=== PATIENT | female | born 1945 | race Caucasian/White ===

== ENCOUNTER 2016-04-16 18:20 | Observation (INO) | payer OTHER ==
[~2016-04-16] VITALS: Ht 152.4 cm; Wt 68.4 kg
--- NOTE | 2016-04-16 18:54 | DIAGNOSTIC IMAGING REPORT ---
PROCEDURE: CT HEAD WITHOUT CONTRAST INDICATION: Right-sided visual changes, altered speech and disoriented. Initial encounter. TECHNIQUE: Noncontrast axial images with sagittal and coronal reformations. COMPARISON: Brain MRI 11/15/2008 FINDINGS: Mild cortical atrophy. Ventricular system and brain parenchyma are normal. No evidence of acute intracranial process. Visualized mastoids and sinuses are clear. IMPRESSION: 1. No acute intracranial abnormality 2. Mild cortical atrophy 3. Findings discussed with Dr. Vizcaino at 06:51 p.m., [facility] Time
--- NOTE | 2016-04-16 18:54 | DIAGNOSTIC IMAGING REPORT ---
PROCEDURE: CT HEAD WITHOUT CONTRAST INDICATION: Right-sided visual changes, altered speech and disoriented. Initial encounter. TECHNIQUE: Noncontrast axial images with sagittal and coronal reformations. COMPARISON: Brain MRI 11/15/2008 FINDINGS: Mild cortical atrophy. Ventricular system and brain parenchyma are normal. No evidence of acute intracranial process. Visualized mastoids and sinuses are clear. IMPRESSION: 1. No acute intracranial abnormality 2. Mild cortical atrophy 3. Findings discussed with Dr. Vizcaino at 06:51 p.m., [facility] Time
--- NOTE | 2016-04-16 20:13 | ED NURSING NOTES ---
Clinical Report - Nurses [facility] [address] [place] [address] 04/16/2016 18:22 Patient: PALAK HANSEN TRIAGE Triage time 18:29. Acuity: LEVEL 2. Chief Complaint: HEADACHE and CONFUSION (Code stroke called. "I couldn't get the right words out". Dr Vizcaino at the bedside.). Alert. No acute distress. SEPSIS SCREEN: Sepsis Screen: negative. Negative (no infection suspected/documented). SUDHEER COMA SCORE: Sudheer Coma Scale: 14- eyes open spontaneously (4); best verbal response- disoriented (4); best motor response- obeys commands (6). --18:43 Lashanda Chester R.N. 18:34 04/16/16. BP: 124/72. HR: 77. RR: 22. O2 saturation: 100% on room air. Temp: 98.1 F. Pain level now: cannot qualify. --18:43 Lashanda Chester R.N. Weight: 63.5 kg estimated. Height/Length: 62 inches Estimated. BMI: 25.6. --18:38 Lashanda Chester R.N. Medications Pravastatin Sodium Oral 40 mg, at bedtime. --18:34 Lashanda Chester R.N. Nexium 20mg am. --18:35 Lashanda Chester R.N. Flaxseed (Linseed) Oral. [place] 3 Oral. --18:35 Lashanda Chester R.N. Vits. --18:35 Lashanda Chester R.N. LORazepam Oral, PRN. --18:38 Lashanda Chester R.N. Medication/allergy information source: the patient. --18:43 Lashanda Chester R.N. Allergies No Known Drug Allergy. --18:36 Lashanda Chester R.N. History Arrived by private vehicle. Historian: patient. Accompanied by family. Primary physician (beverly). This started just prior to arrival. She has had weakness. ( Problems with forming and saying words). 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 PAST MEDICAL HX: Immunizations: up-to-date. The patient is post-menopausal. ( cholesterol problems, reflux, anxiety). SOCIAL HX: Heavy tobacco smoker (cigarette)- less than 1 pack per day. Alcohol use; consumes three liquor drinks. No drug use. FALL RISK ASSESSMENT: Fall risk assessment completed. No fall risk identified. NUTRITIONAL RISK ASSESSMENT: The nutritional risk assessment revealed no deficiencies. FUNCTIONAL ASSESSMENT: Functional assessment: no impairments noted. --18:43 Lashanda Chester R.N. PROBLEMS: Vertigo. --18:44 Lashanda Chester R.N. Interventions ID band on patient. To room. --18:43 Lashanda Chester R.N. PHYSICAL ASSESSMENT To room via wheelchair. Patient gowned. GENERAL / NEURO / PSYCH: Appears anxious. HEENT: No facial asymmetry noted. Mucous membranes are pink. RESPIRATORY: Respirations not labored. CVS: Capillary refill less than 2 seconds. GI / : Abdomen nontender. SKIN: Skin intact. Skin is warm and dry. Normal skin turgor. --18:44 Lashanda Chester R.N. NURSING PROGRESS NOTES radiation monitor, pulse oximeter and NIBP monitor placed on patient; monitor tech- Lead II; monitor alarms on. Patient gowned. Head of bed elevated. Two patient identifiers checked. Call light placed in reach. Side rails up x 2. Bed placed in lowest position. Brakes of bed on. Patient ready for evaluation. --18:44 Lashanda Chester R.N. Patient returned from CT by stretcher with tech. (18:45). --18:45 Lashanda Chester R.N. 18:30 04/16/2016 Site #1 started via IV in the right antecubital space with an 20g angiocath, with aseptic technique and good blood return; one attempt. Blood drawn: rainbow set. Labeled in the presence of the patient and sent to the lab. Saline lock flushed with 10 mL saline. --18:45 Lashanda Chester R.N. 18:46 04/16/16. BP: 113/65 taken on the left arm, while lying. HR: 81. RR: 17. O2 saturation: 97% on room air. --18:47 Lashanda Chester R.N. EKG time: (184). EKG was performed by a tech and shown to the ED physician. --18:54 Haritha Land Finger stick glucose: 74 mg/dL; performed by nurse. --19:07 Lashanda Chester R.N. ( Patient ambulated to and from the bathroom, with only standby assistance. Gait steady, patient follows directions.). --19:09 Lashanda hCester R.N. 19:10 04/16/2016 Started bag #1 1000 mL IV Fluids IV NS (Saline); at 1000 mL/hr over 1 hour(s) via site #1 via IV pump. Allergies verified and confirmed 5 rights. IV patency established. IV site checked: no pain, redness, or swelling. IV flushed thoroughly pre- and post-medication administration. --19:17 Lashanda Chester R.N. 19:58 04/16/2016 Aspirin PO Tablets 325 mg given. Allergies verified and confirmed 5 rights. (Given by Lashanda Mccullough). --19:58 Koki Katz R.N. DISPOSITION / DISCHARGE Transported via stretcher by [employer]. Report was given to a nurse. Report included patient's care, treatment, medications, reviewed medication reconcilliation, and condition (including any recent changes or anticipated changes). All questions were answered. Report was acknowledged and care was transferred. (KATALINA Correa). Patient's personal items include: shirt, pants, socks, shoes and cell phone; items were placed in belongings bag and transported with the patient. Collection of belongings was witnessed by 1 nurse. --21:17 Lashanda Chester R.N. 20:40 04/16/16. BP: 128/88. HR: 69. RR: 16. O2 saturation: 100% on room air. Pain level now: 0. 19:30 04/16/16. BP: 122. HR: 74. RR: 16. O2 saturation: 100%. Pain level now: 05/22. 18:46 04/16/16. BP: 113/65 taken on the left arm, while lying. HR: 81. RR: 17. O2 saturation: 97% on room air. 18:34 04/16/16. BP: 124/72. HR: 77. RR: 22. O2 saturation: 100% on room air. Temp: 98.1 F. Pain level now: cannot qualify. --21:17 Lashanda Chester R.N. Locked/Released at 04/16/2016 21:34 by Lashanda Chester R.N.
--- NOTE | 2016-04-16 20:13 | ED ORDER SUMMARY ---
..... Patient: PALAK HANSEN OrderSheet [facility] VisitID: [id number] [place] [address] 71y, F Registration Date/Time: 04/16/2016 ORDER SHEET Weight: 63.5 kg (estimated) Allergies: No Known Drug Allergy GENERAL ORDERS: CT Head wo Cont Urgent (18:32 04/16/2016 SRoberts R.N. verbal order read back to Dillon LIMA) (Ack 18:35 LTapper) (18:56 SRoberts R.N.) (18:57 MCampbell) Cardiac Panel Stat (18:50 04/16/2016 Dillon LIMA) (Ack 18:58 LTapper) (18:58 LTapper) PT with INR Urgent (18:50 04/16/2016 Dillon LIMA) (Ack 18:58 LTapper) (18:58 LTapper) UA-Culture if indicated Urgent (18:50 04/16/2016 Dillon LIMA) (Ack 18:58 LTapper) (18:58 LTapper) MEDICATION ORDERS: Aspirin PO 325 mg (Do not crush or chew, NOW) (19:47 04/16/2016 Dillon LIMA) (Ack 19:57 ABarnum R.N.) (19:58 ABarnum R.N.) IV FLUIDS: IV NS : initial bolus 1000 mL (1000 mL/hr), then none - (NOW) (18:50 04/16/2016 Dillon LIMA) (Ack 19:09 ABarnum R.N.) (19:17 SRoberts R.N.) ORDER SHEET NOTES: [Electronically signed by Lashanda Chester R.N. (21:34 04/16/2016)] [Electronically signed by Qi Vizcaino MD (21:43 04/20/2016)] [Electronically locked/signed by Lashanda Chester R.N. (21:34 04/16/2016)]
--- NOTE | 2016-04-16 20:13 | ED CLINICAL REPORT ---
Clinical Report - Physicians/Mid Levels [facility] [address] [place] [address] 04/16/2016 18:22 Patient: PALAK HANSEN Time Seen: 1828. Arrived- By private vehicle. Historian- patient. HISTORY OF PRESENT ILLNESS Chief Complaint: IMPAIRED SPEECH. This started about 1 hour ago and is still present but is improving. No weakness, numbness, tingling, visual disturbance or impaired swallowing. No recent fall. She has had difficulty with speech (pt was unable to get the right words out, per and pt). No difficulty walking. At its maximum deficit described as moderate. When seen in the E.D., deficit described as mild. No dizziness, altered mental status, seizure or blackouts. Usually is alert and oriented X3 and has normal mobility. Similar symptoms previously: None. Recent medical care: Not recently seen/assessed. REVIEW OF SYSTEMS No fever, headache, head injury, chest pain or difficulty breathing. No cough, sputum production, sore throat, abdominal pain or nausea. No diarrhea, black stools, difficulty with urination, skin rash or enlarged lymph nodes. No joint pain, vomiting, bloody stools or back pain. All systems otherwise negative, except as recorded above. PAST HISTORY Problems: Anxiety Reaction. Hypercholesterolemia. Vertigo. Additional Surgeries: no known surgeries. Medications: LORazepam Oral, PRN. Vits. Flaxseed (Linseed) Oral. [place] 3 Oral. Nexium 20mg am. Pravastatin Sodium Oral 40 mg, at bedtime. Allergies: No Known Drug Allergy. SOCIAL HISTORY Smoker- current status unknown. Alcohol use. No drug use. ADDITIONAL NOTES The nursing notes have been reviewed. PHYSICAL EXAM Vital Signs: 04/16/2016 18:34 BP: 124/72. HR: 77. RR: 22. O2 saturation: 100%. Temp: 98.1 F. Have been reviewed. Appearance: Alert. No acute distress. Head: Head atraumatic. Eyes: Pupils equal, round and reactive to light. ENT: Normal ENT inspection. Airway intact. Neck: Normal inspection. CVS: Normal heart rate and rhythm. Heart sounds normal. Pulses normal. Respiratory: No respiratory distress. Breath sounds normal. Abdomen: Soft and nontender. Back: Normal inspection. No CVA tenderness. Skin: Skin warm and dry. Normal skin color. No rash. Normal skin turgor. Extremities: Extremities exhibit normal ROM. No lower extremity edema. Neuro: Alert. Oriented X 3. Expressive aphasia (Very mild; pt occasionally says the wrong word or stumbles in her speech. Pt's speech does not flow smoothly.). Mood/affect normal. Cranial nerves normal (as tested). No cerebellar findings. No motor deficit. No sensory deficit. LABS, X-RAYS, AND EKG EKG: EKG time: (1848). Rhythm Strip #1: Time: (0). Rate= 74. Normal sinus rhythm. Regular rhythm. Narrow QRS complexes. No ectopy. Conduction normal. Normal ST segments and T waves. The study was interpreted by me. CT Head: Normal study. No acute changes. No bony abnormalities, no hemorrhage, no intracranial mass, no midline shift and no hydrocephalus. No atrophy. Head CT performed without contrast. The study was independently viewed by me, interpreted by the radiologist and contemporaneously by me and discussed with the radiologist. Prior studies were not available for comparison. Laboratory Tests: UA-Culture if indicated: (CLAUDIO: 04/16/2016 19:05) ( MsgRcvd 04/16/2016 19:25) Final results Test Result Flag Units (Reference) URINE COLOR YELLOW URINE APPEARANCE CLEAR URINE GLUCOSE NEGATIVE (NEGATIVE) URINE BILIRUBIN NEGATIVE (NEGATIVE) URINE KETONE NEGATIVE (NEGATIVE) URINE SPECIFIC GRAVITY <= 1.005 L (1.010-1.030) URINE PH 6.0 (5.0-8.0) URINE PROTEIN NEGATIVE (NEGATIVE) URINE UROBILINOGEN 0.2 EU/dL (0.2-1.0) URINE NITRITE NEGATIVE (NEGATIVE) URINE BLOOD NEGATIVE (NEGATIVE) URINE LEUK ESTERASE NEGATIVE (NEGATIVE) URINE RBC 0-1 rbc/hpf (0-1) URINE WBC 0-1 wbc/hpf (0-1) URINE EPITHELIAL CELLS 1-3 EPI/hpf (0-5) URINE BACTERIA NONE SEEN (NONE SEEN) URINE COMMENT CULT NOT INDICATED URINE CULTURES ARE SET-UP BASED ON THE FOLLOWING CRITERIA:POSITIVE NITRITEPOSITIVE LEUKOCYTE ESTERASEGREATER THAN 10 WHITE BLOOD CELLSMODERATE (2+) OR GREATER BACTERIA CBC w Diff: (CLAUDIO: 04/16/2016 18:30) ( [facility] 04/16/2016 18:58) Final results Test Result Flag Units (Reference) WHITE BLOOD COUNT 5.8 K/uL (4.5-11.5) RED BLOOD COUNT 3.78 L M/uL (4.00-5.20) HEMOGLOBIN 11.7 L gm/dL (12.0-16.0) HEMATOCRIT 35.2 L % (36.0-46.0) MEAN CELL VOLUME 93 fL (80-100) MEAN CORPUSCULAR HGB 31 pg (26-34) MEAN CORPUSCULAR HGB CONC 33 g/dL (31-37) RED CELL DISTRIBUTION WIDTH 13.7 % (11.6-14.8) PLATELET COUNT 140 L K/uL (150-400) NEUTROPHIL % 31.5 L % (50-75) LYMPH % 52.8 H % (25-40) MONO % 15.0 H % (3-14) EOSINOPHIL % 0.3 % (0-4) BASOPHIL % 0.4 % (0-2) PT with INR: (CLAUDIO: 04/16/2016 18:30) ( [facility] 04/16/2016 19:07) Final results Test Result Flag Units (Reference) INR 1.0 (0.8-1.2) Low Intensity Therapy: INR 1.5-2.0 PT range 18.5-23.1Mod.Intensity Therapy: INR 2.0-3.0 PT range 23.1-31.5High Intensity Therapy: INR 2.5-3.5 PT range 27.4-35.5High Intensity Therapy 2: INR 3.0-4.0 PT range 31.5-39.3 CHEM 13 PANEL: (CLAUDIO: 04/16/2016 18:30) ( [facility] 04/16/2016 19:18) Final results Test Result Flag Units (Reference) GLUCOSE 74 mg/dL (70-110) BUN 17 mg/dL (7-18) CREATININE 0.6 mg/dL (0.6-1.3) Estimated GFR >60 mL/min Estimated GFR- >60 mL/min Note: Persistent reduction over 3 months in eGFR<60 mL/min/1.73 m2 defines CKD. Patients with eGFR values>=60 mL/min/1.73 m2 may also have CKD if evidence ofpersistent proteinuria. Additional information may be foundat www.kidney.org. SODIUM 141 mmol/L (136-145) POTASSIUM 3.4 L mmol/L (3.5-5.1) CHLORIDE 107 mmol/L (98-107) CARBON DIOXIDE 23 mmol/L (21-32) CALCIUM 8.6 mg/dL (8.5-10.1) TOTAL PROTEIN 8.9 H g/dL (6.4-8.2) ALBUMIN 3.4 g/dL (3.3-5.0) BILIRUBIN, TOTAL 0.2 mg/dL (0.0-1.0) ALKALINE PHOSPHATASE 75 U/L (46-116) AST (SGOT) 31 U/L (15-37) ALT (SGPT) 34 U/L (12-78) MAGNESIUM 1.9 mg/dL (1.8-2.4) CPK 75 U/L (24-260) TROPONIN I <0.05 L ng/mL (0.00-1.5) TROPONIN REFERENCE RANGE:<0.1 NEGATIVE0.1-1.5 INDETERMINANT>1.5 POSITIVE . Pulse Oximetry: 04/16/2016 18:34 O2 saturation: 100%. (FIO2 - room air). Interpretation: normal. PROGRESS AND PROCEDURES Course of Care: Pt was evaluated as a "code Stroke", and after my initial evaluation, was immediately sent for a stat CT head. This did not show evidence of hemorrhage. Pt was given an ASA and a liter of NS. Pt had improved a little since symptom onset, and I did not feel she was a candidate for tPA at this time. Pt's work-up in the ED was negative. I did feel that the pt should be admitted to the hospital for observation and further work-up. Discussed case with hospitalist, (Nikkie). Reviewed test results and need for additional work-up. Agreed upon treatment plan and decision to admit. Health care provider will see patient in hospital. Old medical records reviewed. Disposition: Admitted to Acute Care. Condition: stable and serious. CLINICAL IMPRESSION Acute transient ischemic attack. (Electronically signed by Qi Vizcaino MD 04/20/2016 21:43)
--- NOTE | 2016-04-16 20:13 | ED NURSING NOTES ---
Clinical Report - Nurses [facility] [address] [place] [address] 04/16/2016 18:22 Patient: PALAK HANSEN TRIAGE Triage time 18:29. Acuity: LEVEL 2. Chief Complaint: HEADACHE and CONFUSION (Code stroke called. "I couldn't get the right words out". Dr Vizcaino at the bedside.). Alert. No acute distress. SEPSIS SCREEN: Sepsis Screen: negative. Negative (no infection suspected/documented). SUDHEER COMA SCORE: Sudheer Coma Scale: 14- eyes open spontaneously (4); best verbal response- disoriented (4); best motor response- obeys commands (6). --18:43 Lashanda Chester R.N. 18:34 04/16/16. BP: 124/72. HR: 77. RR: 22. O2 saturation: 100% on room air. Temp: 98.1 F. Pain level now: cannot qualify. --18:43 Lashanda Chester R.N. Weight: 63.5 kg estimated. Height/Length: 62 inches Estimated. BMI: 25.6. --18:38 Lashanda Chester R.N. Medications Pravastatin Sodium Oral 40 mg, at bedtime. --18:34 Lashanda Chester R.N. Nexium 20mg am. --18:35 Lashanda Chester R.N. Flaxseed (Linseed) Oral. [place] 3 Oral. --18:35 Lashanda Chester R.N. Vits. --18:35 Lashanda Chester R.N. LORazepam Oral, PRN. --18:38 Lashanda Chester R.N. Medication/allergy information source: the patient. --18:43 Lashanda Chester R.N. Allergies No Known Drug Allergy. --18:36 Lashanda Chester R.N. History Arrived by private vehicle. Historian: patient. Accompanied by family. Primary physician (beverly). This started just prior to arrival. She has had weakness. ( Problems with forming and saying words). 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 PAST MEDICAL HX: Immunizations: up-to-date. The patient is post-menopausal. ( cholesterol problems, reflux, anxiety). SOCIAL HX: Heavy tobacco smoker (cigarette)- less than 1 pack per day. Alcohol use; consumes three liquor drinks. No drug use. FALL RISK ASSESSMENT: Fall risk assessment completed. No fall risk identified. NUTRITIONAL RISK ASSESSMENT: The nutritional risk assessment revealed no deficiencies. FUNCTIONAL ASSESSMENT: Functional assessment: no impairments noted. --18:43 Lashanda Chester R.N. PROBLEMS: Vertigo. --18:44 Lashanda Chester R.N. Interventions ID band on patient. To room. --18:43 Lashanda Chester R.N. PHYSICAL ASSESSMENT To room via wheelchair. Patient gowned. GENERAL / NEURO / PSYCH: Appears anxious. HEENT: No facial asymmetry noted. Mucous membranes are pink. RESPIRATORY: Respirations not labored. CVS: Capillary refill less than 2 seconds. GI / : Abdomen nontender. SKIN: Skin intact. Skin is warm and dry. Normal skin turgor. --18:44 Lashanda Chester R.N. NURSING PROGRESS NOTES lease picker, pulse oximeter and NIBP monitor placed on patient; boat motor mechanic- Lead II; monitor alarms on. Patient gowned. Head of bed elevated. Two patient identifiers checked. Call light placed in reach. Side rails up x 2. Bed placed in lowest position. Brakes of bed on. Patient ready for evaluation. --18:44 Lashanda Chester R.N. Patient returned from CT by stretcher with tech. (18:45). --18:45 Lashanda Chester R.N. 18:30 04/16/2016 Site #1 started via IV in the right antecubital space with an 20g angiocath, with aseptic technique and good blood return; one attempt. Blood drawn: rainbow set. Labeled in the presence of the patient and sent to the lab. Saline lock flushed with 10 mL saline. --18:45 Lashanda Chester R.N. 18:46 04/16/16. BP: 113/65 taken on the left arm, while lying. HR: 81. RR: 17. O2 saturation: 97% on room air. --18:47 Lashanda Chester R.N. EKG time: (184). EKG was performed by a tech and shown to the ED physician. --18:54 Haritha Land Finger stick glucose: 74 mg/dL; performed by nurse. --19:07 Lashanda Chester R.N. ( Patient ambulated to and from the bathroom, with only standby assistance. Gait steady, patient follows directions.). --19:09 Lashanda Chester R.N. 19:10 04/16/2016 Started bag #1 1000 mL IV Fluids IV NS (Saline); at 1000 mL/hr over 1 hour(s) via site #1 via IV pump. Allergies verified and confirmed 5 rights. IV patency established. IV site checked: no pain, redness, or swelling. IV flushed thoroughly pre- and post-medication administration. --19:17 Lashanda Chester R.N. 19:58 04/16/2016 Aspirin PO Tablets 325 mg given. Allergies verified and confirmed 5 rights. (Given by Lashanda Mccullough). --19:58 Koki Katz R.N. DISPOSITION / DISCHARGE Transported via stretcher by [employer]. Report was given to a nurse. Report included patient's care, treatment, medications, reviewed medication reconcilliation, and condition (including any recent changes or anticipated changes). All questions were answered. Report was acknowledged and care was transferred. (KATALINA Correa). Patient's personal items include: shirt, pants, socks, shoes and cell phone; items were placed in belongings bag and transported with the patient. Collection of belongings was witnessed by 1 nurse. --21:17 Lashanda Chester R.N. 20:40 04/16/16. BP: 128/88. HR: 69. RR: 16. O2 saturation: 100% on room air. Pain level now: 0. 19:30 04/16/16. BP: 122. HR: 74. RR: 16. O2 saturation: 100%. Pain level now: 05/22. 18:46 04/16/16. BP: 113/65 taken on the left arm, while lying. HR: 81. RR: 17. O2 saturation: 97% on room air. 18:34 04/16/16. BP: 124/72. HR: 77. RR: 22. O2 saturation: 100% on room air. Temp: 98.1 F. Pain level now: cannot qualify. --21:17 Lashanda Chester R.N. Locked/Released at 04/16/2016 21:34 by Lashanda Chester R.N.
--- NOTE | 2016-04-16 20:13 | ED ORDER SUMMARY ---
..... Patient: PALAK HANSEN OrderSheet [facility] VisitID: [id number] [place] [address] 71y, F Registration Date/Time: 04/16/2016 ORDER SHEET Weight: 63.5 kg (estimated) Allergies: No Known Drug Allergy GENERAL ORDERS: CT Head wo Cont Urgent (18:32 04/16/2016 SRoberts R.N. verbal order read back to Dillon LIMA) (Ack 18:35 LTapper) (18:56 SRoberts R.N.) (18:57 MCampbell) Cardiac Panel Stat (18:50 04/16/2016 Dillon LIMA) (Ack 18:58 LTapper) (18:58 LTapper) PT with INR Urgent (18:50 04/16/2016 Dillon LIMA) (Ack 18:58 LTapper) (18:58 LTapper) UA-Culture if indicated Urgent (18:50 04/16/2016 Dillon LIMA) (Ack 18:58 LTapper) (18:58 LTapper) MEDICATION ORDERS: Aspirin PO 325 mg (Do not crush or chew, NOW) (19:47 04/16/2016 Dillon LIMA) (Ack 19:57 ABarnum R.N.) (19:58 ABarnum R.N.) IV FLUIDS: IV NS : initial bolus 1000 mL (1000 mL/hr), then none - (NOW) (18:50 04/16/2016 Dillon LIMA) (Ack 19:09 ABarnum R.N.) (19:17 SRoberts R.N.) ORDER SHEET NOTES: [Electronically signed by Lashanda Chester R.N. (21:34 04/16/2016)] [Electronically signed by Qi Vizcaino MD (21:43 04/20/2016)] [Electronically locked/signed by Lashanda Chester R.N. (21:34 04/16/2016)]
[2016-04-16 22:40] VITALS: BP 154/76
[2016-04-17] MEDS ORDERED: PRAVACHOL40 MG PO (00:44)
[2016-04-17] MEDS ORDERED: NEXIUM20 M1 PO (00:46)
[2016-04-17] MEDS ORDERED: RESTASIS0.05 % OP (00:48)
[2016-04-17] MEDS ORDERED: LORAZEPAM0.5 MG PO (00:48)
[2016-04-17 02:06] VITALS: BP 122/65
--- NOTE | 2016-04-17 04:04 | HISTORY AND PHYSICAL ---
ADMITTED: 04/16/2016 HISTORIAN: Information source: The patient herself. Reliability: Good. CHIEF COMPLAINT: 1. Confusion, headache, disorientation, difficulty in speech HISTORY OF PRESENT ILLNESS: A 71-year-old female with past medical history of Sjogren disease, irritable bowel syndrome, hyperlipidemia, migraine, anxiety disorder, GERD, Silveira esophagus, hiatal hernia, rectal polyps s/p polypectomy, was brought to [facility] Department by her for the complaints of confusion, disorientation, change in her speech. As per the patient today after shopping, she went home and at home when she was going through the reciepts, she was talking, but she could not get the words what she wanted to talk. Her had difficulty understanding her. He found her disoriented and confused, so he asked her to go to emergency department with him. Before coming to hospital, she checked herself in mirror, and found her right eye to be abnormal, it looked smaller than the other eye. She also complained of frontal headache. She denied any blurred vision, trauma or fall, dizziness, vertigo, lightheadedness, or syncope. She felt a little off balance, though. In emergency department, on arrival her symptoms were resolved. She was not notice to have any neurological focal deficit. Her CT scan of head did not show any acute pathology. She received aspirin 325 mg in emergency department for possible transient ischemic attack . She is admitted to the hospital for the observation and further workup. MEDICAL/SURGICAL HISTORY: Past medical history: Sjogren disease, irritable bowel syndrome, GERD, Silveira esophagus, hiatal hernia. Past surgical history: Tonsillectomy, hysterectomy, cholecystectomy, hand surgery, upper GI endoscopy, colonoscopy, status post polypectomy. MEDICATIONS: 1. Cyclosporine ophthalmic drops 0.05% 1 drop 2 times a day, both eyes. 2. Nexium 20 mg p.o. daily. 3. Lorazepam 0.5 mg tablet p.o. at bedtime. 4. Pravastatin 40 mg p.o. daily. ALLERGIES: 1. HYDROXYQUINONE. 2. BEE VENOM. SOCIAL HISTORY: She lives in community with her . Denies smoking, alcohol use or any drug use. FAMILY HISTORY: Father of heart attack. Mother was alcoholic. REVIEW OF SYSTEMS: She denies fever, chills, sweats, weakness, malaise. She denies any vision change, pain in her eyes. She denies any nasal discharge, nasal congestion, mouth pain, mouth swelling, throat pain, throat swelling. She denies any cough, shortness of breath, wheezing, pleuritic pain. She denies any chest pain, palpitation, orthopnea, paroxysmal nocturnal dyspnea, edema. She denies any nausea, vomiting, abdominal pain, diarrhea, constipation. She denies any dysuria, frequency, incontinence. She denies any neck pain, shoulder pain, back pain. She denies any rash, lesions, jaundice, bruising. She denies any weakness, numbness, any incoordination. She had change is her speech before coming to hospital , but she says it is now resolved. Her confusion has improved. She denies any seizures. PHYSICAL EXAMINATION: VITAL SIGNS: Temperature 97.9, pulse 61, respiratory rate 18 per minute, blood pressure 154/76, pulse oximetry 97% on room air. GENERAL: She is alert, awake, oriented x3, with no acute distress. HEENT: Head is atraumatic, normocephalic. Eyes: Pupils are equally reactive to light. Mucous membranes are moist, normal-appearing. LUNGS: Clear to auscultation. Normal air movement. NECK: Supple. There is no JVD. CARDIOVASCULAR: Regular rate and rhythm, normal S1 and S2. No murmurs heard. ABDOMEN: Normal bowel sounds. Soft, nontender. No guarding. EXTREMITIES: There is no edema. NEUROLOGIC: Normal speech. Normal tone. Sensation intact. Reflexes 2+ and equal in all extremities. Cranial nerves intact. Strength 5/5 in all 4 extremities. No lateralizing signs. Mental status normal. LAB/IMAGING: Laboratories: Sodium 141, potassium 3.4, chloride 107, CO2 23, BUN 17, creatinine 0.6, GFR more than 60, glucose 74, plasma calcium 8.6, magnesium 1.9, total protein 8.9, Total bili 0.2, AST 31, ALT 34, alk phos 75, albumin 3.4. CK 75, troponin less than 0.05. WBC 5.8, hemoglobin 11.7, hematocrit 35.2, MCV 93, MCH 31, RDW 13.7, neutrophils 31.5, lymphocytes 52.8, platelets 140,000. UA: No signs of infection. Imaging: CT head without contrast: no acute intracranial abnormality, mild cortical atrophy. IMPRESSION/PLAN: 1. Cerebrovascular accident, ruling out transient ischemic attack versus stroke. Received aspirin 325 mg 1 dose, we will start on aspirin 81 mg daily orally. Start atorvastatin 80 mg daily. Telemetry monitoring. Neurological checks q.4 hourly. Check MRI brain without contrast. Check carotid duplex and echocardiogram. Physical therapy evaluation at the time of discharge. IV hydration with normal saline. 2. Hyperlipidemia. Continue with atorvastatin 80 mg daily. 3. Gastroesophageal reflux disease. IV Protonix for now. 4. Anxiety disorder. We will continue with Ativan, home dose. 5. Deep venous thrombosis prophylaxis: Sequential compression devices. Gastrointestinal prophylaxis: Proton pump inhibitor. 6. The patient's condition guarded. Anticipated discharge in 1 or 2 days. E.m. coding: OBS3, COMP/high/58341.
[2016-04-17 06:37] VITALS: BP 134/74
--- NOTE | 2016-04-17 07:26 | Progress Note ---
Subjective General Patient states that she is doing well this am. No concern. Has normal strength, sensation, no fevers. Has a little fever blister right lip new. No n/v/d or uri sx. Physical Exam Vital Signs / I&Os Vital Signs Date Time Temp Pulse Resp B/P Pulse O2 O2 Flow FiO2 Ox Delivery Rate 04/17 0637 97.5 60 16 134/74 98 Room Air 04/17 0206 98.1 67 16 122/65 97 Room Air 04/16 2240 97.9 61 18 154/76 97 Room Air 0.0 I&O 04/17 0000 04/16 1600 04/16 0800 Intake Total 480 Output Total 100 Balance 380 General Appearance Alert, Oriented X3, Cooperative, No acute distress HEENT Normal exam, PERRLA, EOMI Lungs Clear to auscultation, Normal air movement Neck Normal exam, Supple, No JVD Cardiovascular Regular rate and rhythm, No murmurs, gallops, rubs Abdomen Soft, No tenderness Extremities No edema, Strength = upper ext's, Strength = lower ext's Neurological Normal speech, Normal tone, Sensation intact, Cranial nerves intact , Strength 5/5 x4 ext's, No lateralizing signs Psych/Mental Status Mental status normal LAB Results Laboratory Tests 04/16 04/16 1905 1830 Chemistry Plasma Sodium (136 - 145 mmol/L) 141 Plasma Potassium (3.5 - 5.1 mmol/L) 3.4 Plasma Chloride (98 - 107 mmol/L) 107 CO2 (Enzymatic) (21 - 32 mmol/L) 23 BUN (7 - 18 mg/dL) 17 Creatinine (0.6 - 1.3 mg/dL) 0.6 Est GFR ( Amer) (mL/min) >60 Est GFR (Non-Af Amer) (mL/min) >60 Glucose (70 - 110 mg/dL) 74 Plasma Calcium (8.5 - 10.1 mg/dL) 8.6 Plasma Magnesium (1.8 - 2.4 mg/dL) 1.9 Total Bilirubin (0.0 - 1.0 mg/dL) 0.2 AST (15 - 37 U/L) 31 ALT (12 - 78 U/L) 34 Alkaline Phosphatase (46 - 116 U/L) 75 Creatine Kinase (24 - 260 U/L) 75 Troponin (0.00 - 1.5 ng/mL) <0.05 Total Protein (6.4 - 8.2 g/dL) 8.9 Albumin (3.3 - 5.0 g/dL) 3.4 Coagulation INR (0.8 - 1.2) 1.0 Hematology WBC (4.5 - 11.5 K/uL) 5.8 RBC (4.00 - 5.20 M/uL) 3.78 Hgb (12.0 - 16.0 gm/dL) 11.7 Hct (36.0 - 46.0 %) 35.2 MCV (80 - 100 fL) 93 MCH (26 - 34 pg) 31 RDW (11.6 - 14.8 %) 13.7 Neut % (Auto) (50 - 75 %) 31.5 Lymph % (Auto) (25 - 40 %) 52.8 [place] % (Auto) (3 - 14 %) 15.0 Eos % (Auto) (0 - 4 %) 0.3 Baso % (Auto) (0 - 2 %) 0.4 Plt Count, EDTA (150 - 400 K/uL) 140 PUBS MCHC (31 - 37 g/dL) 33 Urines Urine Color YELLOW Urine Appearance CLEAR Urine pH (5.0 - 8.0) 6.0 Ur Specific [place] (1.010 - 1.030) <= 1.005 Urine Protein (NEGATIVE) NEGATIVE Urine Ketones (NEGATIVE) NEGATIVE Urine Blood (NEGATIVE) NEGATIVE Urine Nitrite (NEGATIVE) NEGATIVE Urine Bilirubin (NEGATIVE) NEGATIVE Urine Urobilinogen (0.2 - 1.0 EU/dL) 0.2 Ur Leukocyte Esterase (NEGATIVE) NEGATIVE Urine RBC (0 - 1 rbc/hpf) 0-1 Urine WBC (0 - 1 wbc/hpf) 0-1 Ur Epithelial Cells (0 - 5 EPI/hpf) 1-3 Urine Bacteria (NONE SEEN) NONE SEEN Urine Glucose (NEGATIVE) NEGATIVE Urine Comment CULT NOT INDICATED Assessment and Plan Problem List 1. TIA (transient ischemic attack) Plan Patient with TIA that is doing ok at this time. Hx of pupil and ms changes. I will check on carotids, MRI, but also add on MRA brain/ neck r/o aneurysm in neck as well. 2. Pupil disorder Plan Check on imaging. If normal d/c today
[2016-04-17 11:06] VITALS: BP 150/59
--- NOTE | 2016-04-17 11:06 | DIAGNOSTIC IMAGING REPORT ---
PROCEDURE: US CAROTID DOPPLER - RIGHT INDICATION: R/O STROKE TECHNIQUE: Color Doppler duplex imaging of the carotid and vertebral vessels. COMPARISON: None. FINDINGS: Mild right and moderate left bifurcation atherosclerosis. Vessels are patent. Right common carotid artery peak systolic velocity 67 cm/second. Right internal carotid artery peak systolic velocity 88 cm/second. Right external carotid artery peak systolic velocity 61 cm/second. Right ebraqozr-hb-pobiyo carotid artery ratio 1.3 Right vertebral artery peak systolic velocity 34 cm/second antegrade. Left common carotid artery peak systolic velocity 69 cm/second. Left internal carotid artery peak systolic velocity 121 cm/second. Left external carotid artery peak systolic velocity 64 cm/second. Left oeqspxon-ty-epepxz carotid artery ratio 1.8 Left vertebral artery peak systolic velocity 30 cm/second antegrade. IMPRESSION: 1. Mild plaque formation of the bifurcations bilaterally 2. Right ICA 5-15% stenosis 3. Left ICA 16-49% stenosis Velocity criteria are extrapolated from diameter data as defined by the Society of Radiologists in Ultrasound Consensus Conference, Radiology 2003; 229; 340-346.
--- NOTE | 2016-04-17 11:06 | DIAGNOSTIC IMAGING REPORT ---
PROCEDURE: US CAROTID DOPPLER - RIGHT INDICATION: R/O STROKE TECHNIQUE: Color Doppler duplex imaging of the carotid and vertebral vessels. COMPARISON: None. FINDINGS: Mild right and moderate left bifurcation atherosclerosis. Vessels are patent. Right common carotid artery peak systolic velocity 67 cm/second. Right internal carotid artery peak systolic velocity 88 cm/second. Right external carotid artery peak systolic velocity 61 cm/second. Right ilajqafl-kq-rnqnic carotid artery ratio 1.3 Right vertebral artery peak systolic velocity 34 cm/second antegrade. Left common carotid artery peak systolic velocity 69 cm/second. Left internal carotid artery peak systolic velocity 121 cm/second. Left external carotid artery peak systolic velocity 64 cm/second. Left htbdjvxr-dl-kypugu carotid artery ratio 1.8 Left vertebral artery peak systolic velocity 30 cm/second antegrade. IMPRESSION: 1. Mild plaque formation of the bifurcations bilaterally 2. Right ICA 5-15% stenosis 3. Left ICA 16-49% stenosis Velocity criteria are extrapolated from diameter data as defined by the Society of Radiologists in Ultrasound Consensus Conference, Radiology 2003; 229; 340-346.
--- NOTE | 2016-04-17 12:56 | DIAGNOSTIC IMAGING REPORT ---
PROCEDURE: MR BRAIN WITHOUT CONTRAST INDICATION: R/O STROKE TECHNIQUE: Multiplanar multisequence MRI imaging of the brain without contrast. COMPARISON: Brain MRI 06/01/2013 FINDINGS: Normal posterior fossa and CP angles without evidence of a mass or abnormal enhancement. Mild cortical atrophy. Minor white matter chronic ischemic changes but no parenchymal mass or abnormal enhancement. Normal ventricular system. Normal vascular flow voids swati Normal orbits. Mastoids are clear. Minor ethmoid sinus disease. . IMPRESSION: 1. Minor white matter chronic ischemic changes 2. Otherwise negative MRI of the brain
[2016-04-17 14:31] VITALS: BP 129/60
--- NOTE | 2016-04-17 15:35 | DIAGNOSTIC IMAGING REPORT ---
PROCEDURE: MRA HEAD WITHOUT CONTRAST INDICATION: MS changes TECHNIQUE: Thin-cut gradient axial images with 3D MIP reconstructions in sagittal, axial, and coronal projections. COMPARISON: None. FINDINGS: The carotid, vertebral, basilar, middle cerebral, anterior cerebral and posterior cerebral arteries have a normal caliber without stenosis or aneurysm. Left posterior communicating artery is present. IMPRESSION: 1. Brain MRI within normal limits.
--- NOTE | 2016-04-17 16:53 | DIAGNOSTIC IMAGING REPORT ---
REFERRING PHYSICIAN/PROVIDER: Mee Lundy MD [facility] MANAGER: Tripp Bravo Jr MD PROCEDURE: M-mode 2D echocardiography with spectral and color flow Doppler TECHNICAL QUALITY: The study quality was technically adequate. INDICATION: stroke work up RHYTHM DURING PROCEDURE: The patient was in normal sinus rhythm during the exam. INTERPRETATIONS: LEFT VENTRICLE: The left ventricle is normal in size. Left ventricular wall thickness is mildly increased. There is no ventricular septal defect visualized. Left ventricular systolic function is normal without focal wall motion abnormalities. The ejection fraction is estimated to be 55 and 6%. Assessment of diastolic parameters indicates normal left ventricular diastolic function and normal filling pressures. RIGHT VENTRICLE: The right ventricle is normal in size and function. ATRIA: Both atria are normal in size. The interatrial septum is intact with no evidence for an atrial septal defect. MITRAL VALVE: The mitral valve has mild mitral annular calcification is normal function with mild mitral regurgitation. AORTIC VALVE: The aortic valve is trileaflet and opens well as trace aortic regurgitation. TRICUSPID VALVE: Tricuspid valve is normal in structure and function with mild tricuspid regurgitation. The right ventricular systolic pressure is estimated at 53 mmHg assuming a right atrial pressure of 3 mmHg. PULMONIC VALVE: The pulmonic valve is normal in structure and function with trace amount of pulmonic regurgitation. GREAT VESSELS: The aorta root is normal size. The ascending aorta cannot be visualized. The IVC is of normal diameter and collapses greater than 50% with the sniff. This suggests a low right atrial pressure of 3 mmHg. PERICARDIUM: There is no pericardial effusion. IMPRESSION: 1. There is normal LV systolic function and normal LV diastolic function. 2. The right ventricle is normal in size and function. The right ventricular systolic pressure is at least moderately increased estimated at 53 mmHg. 3. There is no gross evidence for cardiac embolic stroke. If highly suspicious consider transesophageal echocardiogram. 4. There is mild tricuspid and mild mitral regurgitation. There is no other evidence of significant valvular heart disease.
[2016-04-17] MEDS ORDERED: ASPIRIN81 M1 PO (19:22)
--- NOTE | 2016-04-17 19:24 | Provider's Discharge Care Plan ---
Problem, Goal, Plan Problem List 1. TIA (transient ischemic attack) Instructions: Follow up as directed, Take meds as directed
--- NOTE | 2016-04-17 19:24 | Provider's Discharge Care Plan ---
Problem, Goal, Plan Problem List 1. TIA (transient ischemic attack) Instructions: Follow up as directed, Take meds as directed
[2016-04-17 19:26] VITALS: BP 126/70
--- NOTE | 2016-04-20 21:43 | ED MAR SUMMARY ---
..... Medication Administration Record [facility] [address] [place] [address] Patient: PALAK HANSEN Visit ID: [id number] 71y, F Weight: 63.5 kg Height/Length: 62 in BMI: 25.6 ALLERGIES: No Known Drug Allergy Start 19:10 04/16/2016 Lashanda Chester R.N. Medication Administered: IV NS (SALINE), Dose: IV Fluids over 1 hour(s), Rate: 1000 mL/hr, Dispensed: 1000 mL bag, Site: #1 right AC. Medication Ordered: IV NS : initial bolus 1000 mL (1000 mL/hr), then none - (NOW). Given 19:58 04/16/2016Koki Haynes R.N. Medication Administered: ASPIRIN [PO], Dose: 325 mg Tablets PO. Medication Ordered: Aspirin PO 325 mg (Do not crush or chew, NOW).
--- NOTE | 2016-04-20 21:43 | ED DISCHARGE INSTRUCTIONS ---
Patient: JADE, PALAK Pena General Instructions [facility] VisitID: [id number] [address] [place] [address] 71y, F Registration Date/Time: 04/16/2016 Acute transient ischemic attack. (Electronically signed by Qi Vizcaino MD 04/20/2016 21:43)
--- NOTE | 2016-04-20 21:43 | ED DISCHARGE INSTRUCTIONS ---
Patient: JADE, PALAK Pena General Instructions [facility] VisitID: [id number] [address] [place] [address] 71y, F Registration Date/Time: 04/16/2016 Acute transient ischemic attack. (Electronically signed by Qi Vizcaino MD 04/20/2016 21:43)
--- NOTE | 2016-04-20 21:43 | ED MAR SUMMARY ---
..... Medication Administration Record [facility] [address] [place] [address] Patient: PALAK HANSEN Visit ID: [id number] 71y, F Weight: 63.5 kg Height/Length: 62 in BMI: 25.6 ALLERGIES: No Known Drug Allergy Start 19:10 04/16/2016 Lashanda Chester R.N. Medication Administered: IV NS (SALINE), Dose: IV Fluids over 1 hour(s), Rate: 1000 mL/hr, Dispensed: 1000 mL bag, Site: #1 right AC. Medication Ordered: IV NS : initial bolus 1000 mL (1000 mL/hr), then none - (NOW). Given 19:58 04/16/2016Koki Haynes R.N. Medication Administered: ASPIRIN [PO], Dose: 325 mg Tablets PO. Medication Ordered: Aspirin PO 325 mg (Do not crush or chew, NOW).
--- NOTE | 2016-04-20 21:44 | ED MED RECONCILIATION SUMMARY ---
Patient: PALAK HANSEN Medication Reconciliation Report [facility] VisitID: [id number] [address] [place] [address] 71y, F Registration Date/Time: 04/16/2016 Weight: 63.5 kg Height/Length: 62 in. BMI: 25.6 ALLERGIES: No Known Drug Allergy The patient's Home Medications are listed below: THE FOLLOWING MEDICATIONS NEED TO BE RECONCILED: Flaxseed (Linseed) Oral LORazepam Oral, PRN Nexium 20mg am [place] 3 Oral Pravastatin Sodium Oral 40 mg, at bedtime Vits The source(s) of the original Home Medication information: patient The following Medications were given to the patient in the Emergency Department: IV NS IV Fluids bolus 0, then 1000 mL/hr, administered: 04/16/2016 7:10:00 PM Aspirin [PO] PO 325 mg, administered: 04/16/2016 7:58:00 PM The following Medications were prescribed to the patient: None.
--- NOTE | 2016-04-20 21:44 | ED MED RECONCILIATION SUMMARY ---
Patient: PALAK HANSEN Medication Reconciliation Report [facility] VisitID: [id number] [address] [place] [address] 71y, F Registration Date/Time: 04/16/2016 Weight: 63.5 kg Height/Length: 62 in. BMI: 25.6 ALLERGIES: No Known Drug Allergy The patient's Home Medications are listed below: THE FOLLOWING MEDICATIONS NEED TO BE RECONCILED: Flaxseed (Linseed) Oral LORazepam Oral, PRN Nexium 20mg am [place] 3 Oral Pravastatin Sodium Oral 40 mg, at bedtime Vits The source(s) of the original Home Medication information: patient The following Medications were given to the patient in the Emergency Department: IV NS IV Fluids bolus 0, then 1000 mL/hr, administered: 04/16/2016 7:10:00 PM Aspirin [PO] PO 325 mg, administered: 04/16/2016 7:58:00 PM The following Medications were prescribed to the patient: None.
== END 2016-04-17 20:05 | disposition home or self-care (01) ==
LOC: ED SRH 18:20 → TRANS SRH 20:38 → ACUTE2 SRH 20:38 → ACUTE3 SRH 21:39 → ACUTE2 SRH 23:56
PROVIDERS: ADMIT Internal Medicine
DX: G45.9 Transient cerebral ischemic attack, unspecified (principal); F17.210 Nicotine dependence, cigarettes, uncomplicated; K21.9 Gastro-esophageal reflux disease without esophagitis; E78.5 Hyperlipidemia, unspecified; F41.9 Anxiety disorder, unspecified; M35.00 Sjogren syndrome, unspecified; R51 Headache; H57.02 Anisocoria